=== PATIENT | male | born 1985 ===

== ENCOUNTER 2019-02-28 10:51 | Outpatient (CLI) | payer BC ==
[2019-02-28 12:38] LABS: Hematocrit 43.4 % (35.5-45.6); Hemoglobin 14.4 gm/dl (11.8-15.2); Mean Corpuscular HGB Conc 33 % (32-34); Mean Corpuscular Volume 90 fl (84-94); Platelet Count 253 K/mm3 (140-440); Red Blood Count 4.83 M/mm3 (3.65-5.03); Red Cell Distribution Width 13.6 % (13.2-15.2)
[2019-02-28 12:51] LABS: Bilirubin,Urine NEG (Negative); Blood,Urine NEG (Negative); Color,Urine Yellow (Yellow); Protein,Urine <15 mg/dL mg/dL (Negative); Urobilinogen,Urine < 2.0 mg/dL (<2.0)
[2019-02-28 12:53] LABS: Alanine Aminotransferase 27 units/L (7-56); Albumin 4.6 g/dL (3.9-5); BUN/Creatinine Ratio 11; Blood Urea Nitrogen 9 mg/dL (9-20); Calcium 9.7 mg/dL (8.4-10.2); Chol/HDL Ratio 3.71 %; HDL Cholesterol 53 mg/dL (40-59); Hemolysis Index 5; LDL Cholesterol,Direct 135 mg/dL (50-130)
[2019-02-28 12:57] LABS: Hepatitis B Surface Antigen Non-Reactive (Negative); Hepatitis C Virus Antibody Non-Reactive (NonReactive)
[2019-02-28 12:59] LABS: Creatinine,Urine 151.3 mg/dL (0.1-20.0); Microalbumin/Creatinine Ratio 7.9 ug/mg
[2019-03-03 08:14] LABS: Vitamin D, 25-OH, D2 <4 ng/mL
== END 2019-02-28 10:52 | disposition home or self-care (01) ==
LOC: LAB 10:51
PROVIDERS: ATTEND Internal Medicine
DX: Z13.21 Encounter for screening for nutritional disorder (principal); E11.9 Type 2 diabetes mellitus without complications; E78.5 Hyperlipidemia, unspecified
CPT/HCPCS: 36415; 80053; 80061; 80074; 81001; 82043; 82306; 82607; 83036; 84443; 85027; 87806

== ENCOUNTER 2019-06-13 09:42 | Outpatient (CLI) | payer BC | END 2019-06-13 09:43 | disposition home or self-care (01) | LOC: LAB 09:42 | PROVIDERS: ATTEND Internal Medicine | DX: E11.65 Type 2 diabetes mellitus with hyperglycemia (principal); E78.5 Hyperlipidemia, unspecified; R74.0 Nonspecific elevation of levels of transaminase and lactic acid dehydrogenase [LDH] | CPT/HCPCS: 36415; 80061; 83036; 84450; 84460 ==